=== PATIENT | female | born 2005 | race Caucasian/White ===

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

== ENCOUNTER 2023-01-05 03:04 | Emergency (ER) | payer OTHER | END 2023-01-05 04:30 | disposition home or self-care (01) | LOC: ERS 03:04 | DX: R07.9 Chest pain, unspecified (principal); F17.290 Nicotine dependence, other tobacco product, uncomplicated | CPT/HCPCS: 71045; 93005 ==

== ENCOUNTER 2023-04-03 07:27 | Emergency (ER) | payer OTHER ==
[2023-04-03] MEDS ORDERED: Mag-Al 1200 mg/1200 mg/30 ML UDCUP ONE (09:16)
[2023-04-03] MEDS ORDERED: Acetaminophen 500 MG TAB ONE (09:16)
== END 2023-04-03 09:26 | disposition home or self-care (01) ==
LOC: ERS 07:27
DX: R07.9 Chest pain, unspecified (principal); F17.290 Nicotine dependence, other tobacco product, uncomplicated
CPT/HCPCS: 71046; 93005